=== PATIENT | male | born 1950 | race Caucasian/White ===

== ENCOUNTER 2019-01-26 11:36 | Emergency (ER) | payer MEDICARE ==
[2019-01-26 13:14] VITALS: BP 155/89
--- NOTE | 2019-01-26 17:04 | ED ---
Laceration/Wound HPI - HPI Summary HPI Summary: Patient is an otherwise healthy 68-year-old male presenting to the ED with a small laceration just below the eye. He states he ran into a board approximately 1 hour prior to arrival. He denies any visual changes, headache or other symptoms. He is concerned over the laceration, bleeding is well- controlled on arrival. He denies any other symptoms. - History of Current Complaint Stated Complaint: RT EYE INJ PER PT Time Seen by Provider: 01/26/19 11:58 Hx Obtained From: Patient Mechanism of Injury: Sharp/Blunt Trauma Onset/Duration: Sudden Onset Aggravating: Movement Alleviating: Compression Timing: Constant Onset Severity: Mild Current Severity: Mild Pain Intensity: 0 Pain Scale Used: 0-10 Numeric Associated Signs & Symptoms: Negative - Allergy/Home Medications Allergies/Adverse Reactions: Allergies Allergy/AdvReac Type Severity Reaction Status Date / Time No Known Allergies Allergy Verified 10/07/14 13:18 PMH/Surg Hx/FS Hx/Imm Hx Previously Healthy: Yes - Surgical History Surgery Procedure, Year, and Place: right arm age 14; appenedectomy; wisdom teeth - Immunization History Date of Tetanus Vaccine: unknown Hx Pertussis Vaccination: No Immunizations Up to Date: Yes Infectious Disease History: No Infectious Disease History: Denies: Hx Clostridium Difficile, Hx Hepatitis, Hx Human Immunodeficiency Virus (HIV), Hx of Known/Suspected MRSA, Hx Shingles, Hx Tuberculosis, Hx Known/ Suspected VRE, Hx Known/Suspected VRSA, History Other Infectious Disease, Traveled Outside the [place] in Last 30 Days - Social History Occupation: Employed Full-time Lives: With Family Alcohol Use: None Alcohol Amount: dry 25 years Hx Substance Use: No Substance Use Type: Reports: None Smoking Status (MU): Never Smoked Tobacco Have You Smoked in the Last Year: No Review of Systems Constitutional: Negative Negative: Fever, Chills, Fatigue, Skin Diaphoresis Negative: Palpitations, Chest Pain Negative: Shortness Of Breath, Cough Genitourinary: Negative Positive: no symptoms reported, see HPI Negative: Arthralgia, Myalgia Positive: Other - .5cm laceration Neurological: Negative All Other Systems Reviewed And Are Negative: Yes Physical Exam Triage Information Reviewed: Yes Vital Signs On Initial Exam: Initial Vitals Temp Pulse Resp BP Pulse Ox 97.8 F 74 17 168/105 97 01/26/19 11:37 01/26/19 11:37 01/26/19 11:37 01/26/19 11:37 01/26/19 11:37 Vital Signs Reviewed: Yes Appearance: Positive: Well-Appearing, Well-Nourished Skin: Positive: Skin Color Reflects Adequate Perfusion, Other - .5cm laceration just below the R eye Eyes: Positive: EOMI, MAITE, Conjunctiva Clear Neck: Positive: Supple Respiratory/Lung Sounds: Positive: Clear to Auscultation, Breath Sounds Present Cardiovascular: Positive: Pulses are Symmetrical in both Upper and Lower Extremities Musculoskeletal: Positive: Strength/ROM Intact Neurological: Positive: Speech Normal Psychiatric: Positive: Affect/Mood Appropriate AVPU Assessment: Alert Diagnostics - Vital Signs Vital Signs Temp Pulse Resp BP Pulse Ox 01/26/19 13:13 98.0 F 63 18 155/89 96 01/26/19 13:11 155/89 01/26/19 13:00 66 97 01/26/19 12:33 68 173/108 97 01/26/19 12:05 75 98 01/26/19 12:03 74 161/108 96 01/26/19 11:37 97.8 F 74 17 168/105 97 - Laboratory Lab Statement: Any lab studies that have been ordered have been reviewed, and results considered in the medical decision making process. Laceration Repair Course/Dx - Course Course Of Treatment: On arrival into the ED, the patient is evaluated for a small laceration under the right thigh. The laceration is approximately 0.5 cm in length and is very superficial. Bleeding is well controlled on arrival. He is not having pain or tenderness to the right cheek or to the eye. Visual acuity is intact. Denies any blurry vision or double vision or headache. Cleanse wound thoroughly. Small amount of skin adhesive is applied with good effect. Patient denies any other concerns or symptoms. He is discharged with dx of laceration. - Clinical Impression Provider Diagnoses: Laceration Discharge - Sign-Out/Discharge Documenting (check all that apply): Patient Departure Patient Received Moderate/Deep Sedation with Procedure: No - Discharge Plan Condition: Stable Disposition: HOME Patient Education Materials: Skin Adhesive Care (ED) Referrals: Patricia Pappas MD [Primary Care Provider] - Additional Instructions: Don't wash face at this time - you may get the area wet tomorrow Tylenol 650mg three times daily as needed for pain Ice to the area - Billing Disposition and Condition Condition: STABLE Disposition: Home
== END 2019-01-26 13:13 | disposition home or self-care (01) ==
LOC: ED 11:36
DX: S01.411A Laceration without foreign body of right cheek and temporomandibular area, initial encounter (principal); W22.8XXA Striking against or struck by other objects, initial encounter; Y92.9 Unspecified place or not applicable
CPT/HCPCS: 99282

== ENCOUNTER 2019-04-28 13:54 | Emergency (ER) | payer MEDICARE ==
[2019-04-28 14:35] VITALS: BP 156/95
--- NOTE | 2019-04-28 15:53 | UC ---
Ear Complaint HPI - HPI Summary HPI Summary: The patient is a 68-year-old male that has had chronic left ear pain for at least 2 years. He states his been getting progressively worse. He states that typically after eating he gets sharp shooting pains that go from his left tragus forward to his left maxillary sinus. He has had no recent sinus congestion or postnasal drip. He denies any cough. He denies any ear pain with chewing. He denies any ringing or roaring in his ears. He denies any discharge from his ears. He has had no fever or chills. He denies any chest pain or shortness of breath. - History of Current Complaint Chief Complaint: UCGeneralIllness Stated Complaint: SINUS PAIN, AND RESTLESS LEGS Time Seen by Provider: 04/28/19 15:40 Hx Obtained From: Patient Onset/Duration: Gradual Onset, Worse Since - x weeks, Other - yrs Severity Initially: Mild Severity Currently: Severe Pain Intensity: 8 Pain Scale Used: 0-10 Numeric Aggravating Factors: Other - eating seems to trigger it Alleviating Factors: Nothing Associated Signs/Symptoms: Negative: Discharge, Hearing Loss, Foreign Body Sensation, Trauma to Ear, Swelling @, URI Symptoms Ear Image: 1 - pain here - Allergies/Home Medications Allergies/Adverse Reactions: Allergies Allergy/AdvReac Type Severity Reaction Status Date / Time No Known Allergies Allergy Verified 04/28/19 14:35 Home Medications: Home Medications Lisinopril [Lisinopril 2.5 MG-] 2.5 mg PO DAILY 04/28/19 [History Confirmed ] PMH/Surg Hx/FS Hx/Imm Hx Previously Healthy: Yes Endocrine History: Dyslipidemia Cardiovascular History: Hypertension - Surgical History Surgical History: Yes Surgery Procedure, Year, and Place: right arm age 14; appenedectomy; wisdom teeth - Family History Known Family History: Positive: Hypertension - Social History Alcohol Use: None Alcohol Amount: dry 25 years Substance Use Type: None Smoking Status (MU): Never Smoked Tobacco Have You Smoked in the Last Year: No Review of Systems All Other Systems Reviewed And Are Negative: Yes Constitutional: Positive: Negative Skin: Positive: Negative Eyes: Positive: Negative ENT: Positive: Ear Ache Respiratory: Positive: Negative Cardiovascular: Positive: Negative Gastrointestinal: Positive: Negative Genitourinary: Positive: Negative Motor: Positive: Negative Neurovascular: Positive: Negative Musculoskeletal: Positive: Negative Neurological: Positive: Negative Psychological: Positive: Negative Physical Exam Triage Information Reviewed: Yes Appearance: Well-Appearing, No Pain Distress, Well-Nourished Vital Signs: Initial Vital Signs Temp 98.7 F 04/28/19 14:32 Pulse 89 04/28/19 14:32 Resp 18 04/28/19 14:32 BP 156/95 04/28/19 14:32 Pulse Ox 98 04/28/19 14:32 Vital Signs Reviewed: Yes Eyes: Positive: Conjunctiva Clear ENT: Positive: Hearing grossly normal, Other - Ear canals abnormal, difficult to visualize TMs. Negative: Nasal congestion, Nasal drainage, Tonsillar exudate , Trismus, Muffled voice, Hoarse voice Neck: Positive: Supple, Nontender, No Lymphadenopathy Respiratory: Positive: Lungs clear, Normal breath sounds, No respiratory distress Cardiovascular: Positive: RRR, No Murmur Musculoskeletal: Positive: ROM Intact, No Edema Neurological: Positive: Alert Psychological Exam: Normal Images Head: 1 - radiation of pain Ear Complaint Course/Dx - Differential Dx/Diagnosis Provider Diagnosis: Chronic left ear pain Discharge ED - Sign-Out/Discharge Documenting (check all that apply): Patient Departure All imaging exams completed and their final reports reviewed: No Studies - Discharge Plan Condition: Stable Disposition: HOME Prescriptions: Naproxen [Naproxen 500 mg tab] 500 mg PO BID PRN #20 tablet PRN Reason: Pain Patient Education Materials: Earache (ED) Referrals: Breezy Anderson MD [Medical Doctor] - 1 Week Additional Instructions: I do not know what is causing your chronic left ear pain Both ear canals look abnormal and I can visualize your ear drums adequately I suggest you see an record retrieval specialist - Billing Disposition and Condition Condition: STABLE Disposition: Home
== END 2019-04-28 15:55 | disposition home or self-care (01) ==
LOC: UCEAST 13:54
DX: H92.02 Otalgia, left ear (principal); G89.29 Other chronic pain; I10 Essential (primary) hypertension; Z79.899 Other long term (current) drug therapy
CPT/HCPCS: 99212; G0463

== ENCOUNTER 2019-10-28 14:01 | Emergency (ER) | payer MEDICARE ==
[2019-10-28 14:20] VITALS: BP 179/99
--- NOTE | 2019-10-28 14:58 | UC ---
Psychiatric Complaint HPI - HPI Summary HPI Summary: The patient is a 69-year-old male with a lifelong history of anxiety. He has required medication for his anxiety for most of his life. He has had admissions for anxiety in the past. He has had psychotic episodes in the past. He has had electroconvulsive therapy in the past. He states today he has been on Prozac and Ativan for well over a year. He states that during the recent Covid 19 pandemic his anxiety has worsened. He has been taking his Ativan 3 times a day. He states that normally he hasn't get by on just 1 or 2 a day. This has been compounded by the fact that his thinks he is having an affair. He states that he found that Klonopin controlled his anxiety better then lorazepam. He has requested that I give him a trial prescription of Klonopin. He has had no suicidal or homicidal ideation. He has had some sleep difficulty. He states that his appetite has decreased of late. He denies any chest pain or shortness of breath. - History Of Current Complaint Chief Complaint: [facility]Psych Stated Complaint: ANXIOUS Time Seen by Provider: 10/28/19 14:12 Hx Obtained From: Patient Onset/Duration: Worse Since - x 4 weeks Timing: Constant Severity Initially: Mild Severity Currently: Severe Character: Anxious Aggravating Factor(s): Recent Stress Alleviating Factor(s): Medication, Counseling Associated Signs And Symptoms: Sleep Disturbance, Appetite Change, Social Isolation - due to COVID 19 - Allergies/Home Medications Allergies/Adverse Reactions: Allergies Allergy/AdvReac Type Severity Reaction Status Date / Time No Known Allergies Allergy Verified 10/28/19 14:20 Home Medications: Home Medications FLUoxetine CAP* [Prozac CAP*] 40 mg PO DAILY 11/25/12 [History Confirmed ] LORazepam TAB(*) [Ativan TAB(*)] 1 mg PO DAILY PRN 11/25/12 [History Confirmed 10/28/19] Simvastatin [Zocor] 10 mg PO DAILY 11/25/12 [History Confirmed 10/28/19] Aspirin 325 mg PO DAILY 10/07/14 [History Confirmed 10/28/19] Naproxen [Naproxen 500 mg tab] 500 mg PO BID PRN #20 tablet 04/28/19 [Rx Confirmed 10/28/19] lisinopriL [Lisinopril 2.5 MG-] 2.5 mg PO DAILY 04/28/19 [History Confirmed ] clonazePAM TAB(*) [KlonoPIN TAB(*)] 0.5 mg PO TID PRN #21 tab MDD 3 10/28/19 [Rx ] PMH/Surg Hx/FS Hx/Imm Hx Previously Healthy: Yes Psychological History: Anxiety, Depression - Surgical History Surgical History: Yes Surgery Procedure, Year, and Place: right arm age 14; appenedectomy; wisdom teeth - Family History Known Family History: Positive: Hypertension - Social History Alcohol Use: None Alcohol Amount: dry 25 years Substance Use Type: None Smoking Status (MU): Never Smoked Tobacco Have You Smoked in the Last Year: No Review of Systems All Other Systems Reviewed And Are Negative: Yes Constitutional: Positive: Negative Skin: Positive: Negative Eyes: Positive: Negative ENT: Positive: Negative Respiratory: Positive: Negative Cardiovascular: Positive: Negative Gastrointestinal: Positive: Negative Genitourinary: Positive: Negative Motor: Positive: Negative Neurovascular: Positive: Negative Musculoskeletal: Positive: Negative Neurological/Mental Status: Positive: Negative Psychological: Positive: Anxious Physical Exam Triage Information Reviewed: Yes Appearance: Well-Appearing, No Pain Distress, Well-Nourished Vital Signs: Initial Vital Signs Temp 97.8 F 10/28/19 14:17 Pulse 71 10/28/19 14:17 Resp 18 10/28/19 14:17 BP 179/99 10/28/19 14:17 Pulse Ox 98 10/28/19 14:17 Vital Signs Reviewed: Yes Eyes: Positive: Conjunctiva Clear ENT: Positive: Hearing grossly normal. Negative: Nasal drainage, TMs normal, Tonsillar swelling, Tonsillar exudate, Muffled voice, Hoarse voice Dental Exam: Normal Neck: Positive: Supple Respiratory: Positive: Lungs clear, Normal breath sounds, No respiratory distress, No accessory muscle use Cardiovascular: Positive: RRR, No Murmur Abdominal Exam: Normal Bowel Sounds: Positive: Present Musculoskeletal: Positive: ROM Intact, No Edema Neurological: Positive: Alert Psychological Exam: Other - normal mood and affect Skin Exam: Normal Psych Complaint Course/Dx - Course Course Of Treatment: [facility] #[id number] - Differential Dx/Diagnosis Provider Diagnosis: Anxiety as acute reaction to exceptional stress Discharge ED - Sign-Out/Discharge Documenting (check all that apply): Patient Departure All imaging exams completed and their final reports reviewed: No Studies - Discharge Plan Condition: Stable Disposition: HOME Prescriptions: clonazePAM TAB(*) [KlonoPIN TAB(*)] 0.5 mg PO TID PRN #21 tab MDD 3 PRN Reason: Anxiety Patient Education Materials: Anxiety (ED) Referrals: Patricia Pappas MD [Primary Care Provider] - If Needed Additional Instructions: stop your lorazepam while taking klonipin contact your psychiatrist re follow up to ER for new or worsening symptoms - Billing Disposition and Condition Condition: STABLE Disposition: Home
== END 2019-10-28 15:08 | disposition home or self-care (01) ==
LOC: UCEAST 14:01
DX: F41.1 Generalized anxiety disorder (principal); F43.0 Acute stress reaction; F32.9 Major depressive disorder, single episode, unspecified; Z79.899 Other long term (current) drug therapy
CPT/HCPCS: 99212; G0463

== ENCOUNTER 2022-04-12 02:27 | Inpatient (IN) ==
[2022-04-12 06:27] LABS: ABS Lymphocytes 0.5 10^3/ul (1.0-4.8); ABS Monocytes 0.8 10^3/ul (0-0.8); ABS Neutrophils 7.3 10^3/ul (1.5-7.7); Eosinophil % 0.1 %; Hematocrit 35 % (42-52); Hemoglobin 12.1 g/dL (14.0-18.0); Lymphocyte % 5.6 %; Mean Corpuscular HGB Conc 35 g/dL (31-36); Mean Corpuscular Hemoglobin 30 pg (27-31); Mean Corpuscular Volume 85 fL (80-94); Mean Platelet Volume 7.8 fL (7.4-10.4); Nucleated Red Blood Cells % 0.1; Platelet Count 233 10^3/uL (150-450); Red Blood Count 4.09 10^6 /uL (4.18-5.48); Red Cell Distribution Width 14 % (10-15); White Blood Count 8.6 10^3/uL (3.5-10.8)
[2022-04-12 07:13] LABS: Albumin 3.3 g/dL (3.2-5.2); Albumin/Globulin Ratio 1.4 (1-3); Calcium 7.8 mg/dL (8.6-10.3); Globulin 2.3 g/dL (2-4); Potassium 3.7 mmol/L (3.5-5.0); Total Bilirubin 0.3 mg/dL (0.2-1.0); Total Protein 5.6 g/dL (6.4-8.9); eGFR CKD-EPI 12.8 (>60)
[2022-04-12] MEDS: Lactated Ringers 1000 ml BAG 2,000 ML IV ONE ×2 (07:41→08:29)
[2022-04-12] MEDS ORDERED: Lidocaine 2% JELLY 6 ML Topical TOPICAL ONE (09:00)
[2022-04-12 09:36] LABS: Urine Appearance Clear; Urine Bilirubin Negative (Negative); Urine Blood 3+ (Negative); Urine Color Yellow; Urine Glucose Negative (Negative); Urine Ketones Trace (Negative); Urine Nitrite Negative (Negative); Urine Protein Negative (Negative); Urine Urobilinogen Negative (Negative)
[2022-04-12 09:37] LABS: Venous Bicarbonate HCO3 18.9 mmol/L (24-28)
[2022-04-12 09:41] LABS: Urine Bacteria 1+ (Absent); Urine Red Blood Cell 3+(>10/hpf) (Absent); Urine White Blood Cell Trace(0-5/hpf) (Absent)
[2022-04-12 10:09] LABS: Albumin/Globulin Ratio 1.4 (1-3); Calcium 7.5 mg/dL (8.6-10.3); Direct Bilirubin 0.1 mg/dL (0.03-0.18); Globulin 2.1 g/dL (2-4); Indirect Bilirubin 0.2 mg/dL (0.3-1.0); Magnesium 2.2 mg/dL (1.9-2.7); Potassium 3.5 mmol/L (3.5-5.0); Total Bilirubin 0.3 mg/dL (0.2-1.0); Total Protein 5.1 g/dL (6.4-8.9); eGFR CKD-EPI 13.4 (>60)
[2022-04-12 10:53] LABS: High Sensitivity Troponin 1 Hr 40 pg/mL (<20)
[2022-04-12 12:44] LABS: TSH Ultra Thyroid Stim Horm 1.04 mcIU/mL (0.34-5.60)
[2022-04-12 12:55] LABS: Osmolality Serum 269 mOsm/kg (275-295)
[2022-04-12] MEDS ORDERED: Lactated Ringers 1000 ml BAG 1,000 ML IV SCH (13:04)
[2022-04-12 13:44] LABS: Urine Chloride Concentration < 22 mmol/L; Urine Potassium Concentration 35.7 mmol/L; Urine Sodium Concentration < 18 mmol/L
[2022-04-12 13:45] LABS: Urine Osmo 297 mOsm/kg (150-1150)
[2022-04-12] MEDS: Heparin 5000 UNITS/ML 1 mL VIAL SUBCUT SCH ×2 (15:06→20:20)
[2022-04-12] MEDS ORDERED: Potassium Chlor 20 meq TAB.ER PO ONE (15:10)
[2022-04-12 15:14] LABS: Calcium 7.3 mg/dL (8.6-10.3); Magnesium 2.1 mg/dL (1.9-2.7); Potassium 3.1 mmol/L (3.5-5.0)
[2022-04-12 15:19] LABS: eGFR CKD-EPI 16.4 (>60)
[2022-04-12] MEDS ORDERED: KCL 10 MEQ/50 ML IVPREMIX 10 MEQ/50 ML BAG ONE (15:30)
[2022-04-12] MEDS: KCL 10 MEQ/50 ML IVPREMIX 10 MEQ/50 ML BAG IV SCH ×2 (15:32→16:57)
[2022-04-12] MEDS ORDERED: LORazepam 2 mg VIAL 1 ml ONE (16:02)
[2022-04-12] MEDS ORDERED: Lorazepam PYXIS KEY ONE (16:02)
[2022-04-12] MEDS ORDERED: Lorazepam PYXIS KEY PRN (16:07)
[2022-04-12] MEDS ORDERED: LORazepam 2 mg VIAL 1 ml IV PUSH ONE (16:08)
[2022-04-12] MEDS ORDERED: LORAZEPAM 2 MG PO PRN (17:14)
[2022-04-12 18:41] LABS: Calcium 7.4 mg/dL (8.6-10.3); eGFR CKD-EPI 19.1 (>60)
[2022-04-12 19:50] LABS: Urine Appearance Cloudy; Urine Bilirubin Negative (Negative); Urine Blood 2+ (Negative); Urine Color Yellow; Urine Glucose Negative (Negative); Urine Ketones Trace (Negative); Urine Nitrite Negative (Negative); Urine Protein 3+(>=500 mg/dL) (Negative); Urine Specific Gravity 1.009 (1.002-1.030); Urine Urobilinogen Negative (Negative)
[2022-04-12 19:54] LABS: Urine Bacteria 1+ (Absent); Urine Red Blood Cell 3+(>10/hpf) (Absent); Urine Squamous Epithelial Cell Present (Absent); Urine White Blood Cell 1+(6-10/hpf) (Absent)
[2022-04-12 20:24] LABS: Calcium 7.5 mg/dL (8.6-10.3); eGFR CKD-EPI 21.5 (>60)
[2022-04-12 21:30] LABS: Phosphorus 6.5 mg/dL (2.5-5.0)
[2022-04-12] MEDS: KCL 20 MEQ/100 ML IVPREMIX 20 MEQ/100 ML BAG IV SCH (23:51)
[2022-04-12] MEDS: Saline FLUSH-CENTRAL 10 ML SYRINGE CENT\\PICC SCH (23:51)
[2022-04-13 01:42] LABS: Anion Gap 12 mmol/L (2-11); Blood Urea Nitrogen 59 mg/dL (6-24); CO2 Carbon Dioxide 21 mmol/L (22-32); Calcium 7.3 mg/dL (8.6-10.3); Chloride 97 mmol/L (101-111); Glucose 89 mg/dL (70-100); Potassium 3.3 mmol/L (3.5-5.0); Sodium 130 mmol/L (135-145); eGFR CKD-EPI 27.4 (>60)
[2022-04-13] MEDS: KCL 20 MEQ/100 ML IVPREMIX 20 MEQ/100 ML BAG IV SCH (02:17)
[2022-04-13] MEDS ORDERED: Lactated Ringers 1000 ml BAG 1,000 ML IV SCH (02:22)
[2022-04-13 02:50] LABS: Acetaminophen < 15 mcg/mL
[2022-04-13] MEDS ORDERED: NS 0.45% 1000 ml BAG 1,000 ML IV SCH (03:00)
[2022-04-13 04:35] LABS: Calcium 7.3 mg/dL (8.6-10.3); Potassium 3.5 mmol/L (3.5-5.0); eGFR CKD-EPI 31.1 (>60)
[2022-04-13] MEDS ORDERED: D5W 500 ml BAG 500 ML IV ONE (04:41)
[2022-04-13] MEDS ORDERED: Lorazepam PYXIS KEY PRN (06:05)
[2022-04-13] MEDS ORDERED: LORazepam 2 mg VIAL 1 ml IV PUSH ONE (06:05)
[2022-04-13 06:09] LABS: Hematocrit 34 % (42-52); Hemoglobin 11.9 g/dL (14.0-18.0); Mean Corpuscular HGB Conc 35 g/dL (31-36); Mean Corpuscular Hemoglobin 30 pg (27-31); Mean Corpuscular Volume 85 fL (80-94); Mean Platelet Volume 7.8 fL (7.4-10.4); Platelet Count 220 10^3/uL (150-450); Red Cell Distribution Width 15 % (10-15); White Blood Count 5.7 10^3/uL (3.5-10.8)
[2022-04-13] MEDS: Heparin 5000 UNITS/ML 1 mL VIAL SUBCUT SCH ×3 (06:17→20:54)
[2022-04-13 07:07] LABS: Calcium 7.3 mg/dL (8.6-10.3); Potassium 3.4 mmol/L (3.5-5.0); eGFR CKD-EPI 34.6 (>60)
[2022-04-13] MEDS ORDERED: Desmopressin Acetate 4 MCG/ML 1 ML SDV SUBCUT ONE ×2 (07:15→20:12)
[2022-04-13] MEDS: Saline FLUSH-CENTRAL 10 ML SYRINGE CENT\\PICC SCH ×2 (08:17→22:14)
[2022-04-13] MEDS: NS 0.45% 1000 ml BAG 1,000 ML IV SCH ×3 (08:19→20:04)
[2022-04-13 12:40] LABS: Calcium 7.7 mg/dL (8.6-10.3); Potassium 3.4 mmol/L (3.5-5.0); eGFR CKD-EPI 47.9 (>60)
[2022-04-13 16:45] LABS: Blood Urea Nitrogen 34 mg/dL (6-24); CO2 Carbon Dioxide 27 mmol/L (22-32); Calcium 7.3 mg/dL (8.6-10.3); Chloride 96 mmol/L (101-111); Glucose 117 mg/dL (70-100); Sodium 135 mmol/L (135-145); eGFR CKD-EPI 60.2 (>60)
[2022-04-13 17:22] LABS: Anion Gap 12 mmol/L (2-11)
[2022-04-13 20:45] LABS: Potassium 3.7 mmol/L (3.5-5.0); eGFR CKD-EPI 66.4 (>60)
[2022-04-13 21:07] LABS: Calcium 7.2 mg/dL (8.6-10.3)
[2022-04-13] MEDS ORDERED: Potassium Chlor 20 meq TAB.ER PO ONE (21:16)
[2022-04-14 00:52] LABS: Potassium 3.7 mmol/L (3.5-5.0)
[2022-04-14 01:14] LABS: Calcium 7.1 mg/dL (8.6-10.3)
[2022-04-14] MEDS ORDERED: Desmopressin Acetate 4 MCG/ML 1 ML SDV SUBCUT SCH (03:00)
[2022-04-14] MEDS: NS 0.45% 1000 ml BAG 1,000 ML IV SCH (05:35)
[2022-04-14] MEDS: Heparin 5000 UNITS/ML 1 mL VIAL SUBCUT SCH ×3 (06:00→20:36)
[2022-04-14 06:08] LABS: ABS Eosinophils 0.1 10^3/ul (0-0.6); ABS Lymphocytes 1.1 10^3/ul (1.0-4.8); ABS Monocytes 0.6 10^3/ul (0-0.8); Eosinophil % 2.5 %; Hematocrit 33 % (42-52); Hemoglobin 11.8 g/dL (14.0-18.0); Lymphocyte % 23.1 %; Mean Corpuscular HGB Conc 36 g/dL (31-36); Mean Corpuscular Hemoglobin 31 pg (27-31); Mean Corpuscular Volume 86 fL (80-94); Mean Platelet Volume 7.7 fL (7.4-10.4); Nucleated Red Blood Cells % 0.1; Platelet Count 218 10^3/uL (150-450); Red Blood Count 3.82 10^6 /uL (4.18-5.48); Red Cell Distribution Width 14 % (10-15); White Blood Count 4.8 10^3/uL (3.5-10.8)
[2022-04-14 06:54] LABS: Calcium 7.1 mg/dL (8.6-10.3); Magnesium 1.7 mg/dL (1.9-2.7); Phosphorus 1.5 mg/dL (2.5-5.0); Potassium 3.5 mmol/L (3.5-5.0); eGFR CKD-EPI 94.9 (>60)
[2022-04-14] MEDS ORDERED: Magnesium Sulfate IV 3 GM in NS 0.9% 100 ml BAG 100 ML IVPB ONE (07:26)
[2022-04-14] MEDS: Saline FLUSH-CENTRAL 10 ML SYRINGE CENT\\PICC SCH ×2 (08:08→20:36)
[2022-04-14] MEDS: Lactated Ringers 1000 ml BAG 1,000 ML IV SCH ×2 (09:13→23:00)
[2022-04-14 12:42] LABS: Calcium 7.2 mg/dL (8.6-10.3); Potassium 3.5 mmol/L (3.5-5.0); eGFR CKD-EPI 98.7 (>60)
[2022-04-14 19:48] LABS: Calcium 6.8 mg/dL (8.6-10.3); Potassium 3.7 mmol/L (3.5-5.0); eGFR CKD-EPI 97.5 (>60)
[2022-04-15] MEDS: Heparin 5000 UNITS/ML 1 mL VIAL SUBCUT SCH ×3 (05:56→20:25)
[2022-04-15 06:47] LABS: Calcium 7.4 mg/dL (8.6-10.3); Magnesium 1.5 mg/dL (1.9-2.7); Potassium 3.7 mmol/L (3.5-5.0); eGFR CKD-EPI 98.7 (>60)
[2022-04-15] MEDS ORDERED: Magnesium Sulfate 2 gm BAG 2 GM/50 ML BAG IVPB ONE ×2 (07:00→10:02)
[2022-04-15] MEDS ORDERED: Potassium Chlor 20 meq TAB.ER PO ONE (07:01)
[2022-04-15] MEDS ORDERED: Senna TAB 8.6 mg TAB PO PRN (07:08)
[2022-04-15] MEDS: Saline FLUSH-CENTRAL 10 ML SYRINGE CENT\\PICC SCH ×2 (08:17→20:33)
[2022-04-15] MEDS ORDERED: Dextrose 50% Syringe 50 ml 25 GM/50 ML SYRINGE IV PUSH PRN (10:21)
[2022-04-15] MEDS ORDERED: Lactated Ringers 1000 ml BAG 500 ML IV SCH (11:00)
[2022-04-15] MEDS ORDERED: Lactated Ringers 500 ml BAG 500 ML IV ONE (13:21)
[2022-04-15] MEDS: Lactated Ringers 1000 ml BAG 1,000 ML IV SCH ×2 (14:11→18:27)
[2022-04-15 14:36] LABS: Calcium 7.8 mg/dL (8.6-10.3); Potassium 4.2 mmol/L (3.5-5.0); eGFR CKD-EPI 95.9 (>60)
[2022-04-15] MEDS ORDERED: Desmopressin Acetate 4 MCG/ML 1 ML SDV SUBCUT ONE ×2 (16:08)
[2022-04-15 16:11] LABS: Magnesium 2.3 mg/dL (1.9-2.7); Phosphorus 1.3 mg/dL (2.5-5.0)
[2022-04-15] MEDS ORDERED: Potassium Phosphate IV 15 MMOLE in NS 0.9% 250 ml 250 ML IVPB ONE (17:00)
[2022-04-16] MEDS: Heparin 5000 UNITS/ML 1 mL VIAL SUBCUT SCH ×3 (05:25→22:38)
[2022-04-16] MEDS: Lactated Ringers 1000 ml BAG 1,000 ML IV SCH ×2 (06:19→22:38)
[2022-04-16 06:49] LABS: ABS Eosinophils 0.3 10^3/ul (0-0.6); ABS Lymphocytes 1.2 10^3/ul (1.0-4.8); ABS Monocytes 0.7 10^3/ul (0-0.8); ABS Neutrophils 3.9 10^3/ul (1.5-7.7); Eosinophil % 5.5 %; Hematocrit 32 % (42-52); Hemoglobin 11.1 g/dL (14.0-18.0); Lymphocyte % 19.6 %; Mean Corpuscular HGB Conc 34 g/dL (31-36); Mean Corpuscular Hemoglobin 30 pg (27-31); Mean Corpuscular Volume 88 fL (80-94); Mean Platelet Volume 7.6 fL (7.4-10.4); Platelet Count 262 10^3/uL (150-450); Red Cell Distribution Width 14 % (10-15); White Blood Count 6.2 10^3/uL (3.5-10.8)
[2022-04-16 06:56] LABS: Calcium 7.1 mg/dL (8.6-10.3); Magnesium 1.6 mg/dL (1.9-2.7); Phosphorus 1.8 mg/dL (2.5-5.0); Potassium 3.9 mmol/L (3.5-5.0); eGFR CKD-EPI 94.9 (>60)
[2022-04-16] MEDS ORDERED: Magnesium Sulfate 2 gm BAG 2 GM/50 ML BAG IVPB ONE (08:07)
[2022-04-16] MEDS: Saline FLUSH-CENTRAL 10 ML SYRINGE CENT\\PICC SCH ×2 (10:09→22:45)
[2022-04-17] MEDS: Heparin 5000 UNITS/ML 1 mL VIAL SUBCUT SCH ×3 (05:25→20:30)
[2022-04-17 06:50] LABS: Calcium 7.4 mg/dL (8.6-10.3); Magnesium 1.4 mg/dL (1.9-2.7); Potassium 3.8 mmol/L (3.5-5.0); eGFR CKD-EPI 99.1 (>60)
[2022-04-17] MEDS ORDERED: Magnesium Sulfate 2 gm BAG 2 GM/50 ML BAG IVPB ONE (06:52)
[2022-04-17] MEDS: Saline FLUSH-CENTRAL 10 ML SYRINGE CENT\\PICC SCH ×2 (09:17→20:33)
[2022-04-17 22:14] LABS: Calcium 7.5 mg/dL (8.6-10.3); Potassium 3.8 mmol/L (3.5-5.0)
[2022-04-18 01:32] LABS: Urine Osmo 260 mOsm/kg (150-1150)
[2022-04-18] MEDS: Heparin 5000 UNITS/ML 1 mL VIAL SUBCUT SCH ×3 (05:46→20:30)
[2022-04-18 06:10] LABS: ABS Eosinophils 0.4 10^3/ul (0-0.6); ABS Lymphocytes 1.2 10^3/ul (1.0-4.8); ABS Monocytes 0.6 10^3/ul (0-0.8); ABS Neutrophils 4.1 10^3/ul (1.5-7.7); Eosinophil % 5.7 %; Hematocrit 33 % (42-52); Hemoglobin 11.5 g/dL (14.0-18.0); Lymphocyte % 19.2 %; Mean Corpuscular HGB Conc 35 g/dL (31-36); Mean Corpuscular Hemoglobin 30 pg (27-31); Mean Corpuscular Volume 88 fL (80-94); Mean Platelet Volume 7.4 fL (7.4-10.4); Platelet Count 267 10^3/uL (150-450); Red Cell Distribution Width 14 % (10-15); White Blood Count 6.3 10^3/uL (3.5-10.8)
[2022-04-18 06:32] LABS: Calcium 7.6 mg/dL (8.6-10.3); Magnesium 1.6 mg/dL (1.9-2.7)
[2022-04-18 06:38] LABS: eGFR CKD-EPI 97.5 (>60)
[2022-04-18] MEDS ORDERED: Magnesium Sulfate 2 gm BAG 2 GM/50 ML BAG IVPB ONE (06:44)
[2022-04-18 10:05] LABS: Osmolality Serum 280 mOsm/kg (275-295)
[2022-04-18] MEDS: Saline FLUSH-CENTRAL 10 ML SYRINGE CENT\\PICC SCH ×2 (11:07→20:33)
[2022-04-18 14:57] LABS: Hepatitis C Antibody Negative (Negative)
[2022-04-18 19:41] LABS: HIV 4th Generation Nonreactive (Nonreactive)
[2022-04-19 05:51] LABS: ABS Eosinophils 0.2 10^3/ul (0-0.6); ABS Lymphocytes 1.1 10^3/ul (1.0-4.8); ABS Monocytes 0.5 10^3/ul (0-0.8); ABS Neutrophils 3.4 10^3/ul (1.5-7.7); Eosinophil % 4.4 %; Hematocrit 34 % (42-52); Hemoglobin 11.3 g/dL (14.0-18.0); Lymphocyte % 20.7 %; Mean Corpuscular HGB Conc 34 g/dL (31-36); Mean Corpuscular Hemoglobin 30 pg (27-31); Mean Corpuscular Volume 89 fL (80-94); Mean Platelet Volume 6.8 fL (7.4-10.4); Nucleated Red Blood Cells % 0.1; Platelet Count 254 10^3/uL (150-450); Red Blood Count 3.82 10^6 /uL (4.18-5.48); Red Cell Distribution Width 14 % (10-15); White Blood Count 5.3 10^3/uL (3.5-10.8)
[2022-04-19] MEDS: Heparin 5000 UNITS/ML 1 mL VIAL SUBCUT SCH (05:56)
[2022-04-19 06:14] LABS: Calcium 7.6 mg/dL (8.6-10.3); Potassium 4.1 mmol/L (3.5-5.0); eGFR CKD-EPI 98.3 (>60)
[2022-04-19 07:04] LABS: Osmolality Serum 293 mOsm/kg (275-295)
[2022-04-19] MEDS: Saline FLUSH-CENTRAL 10 ML SYRINGE CENT\\PICC SCH (08:17)
[2022-04-19] MEDS ORDERED: Polyethylene Glycol 3350 17 GM PACKET PO PRN (08:33)
[2022-04-19 10:03] LABS: Urine Osmo 343 mOsm/kg (150-1150)
[2022-04-19 11:44] VITALS: BP 147/85
[2022-04-19 17:32] LABS: Hepatitis B Surface Antigen Nonreactive (Nonreactive)
== END 2022-04-19 14:30 | disposition home or self-care (01) | DRG 682 ==
LOC: ED 02:27 → EDHOLD 10:44 → SUATTDRO 10:44 → ICU 14:40 → MED 04-15 18:21
PROVIDERS: ADMIT Internal Medicine Critical Care Medicine; ATTEND Internal Medicine

== ENCOUNTER 2023-05-27 09:12 | Inpatient (IN) ==
[2023-05-27] MEDS ORDERED: NS 0.9% 1000 ml BAG 1,000 ML IV ONE ×3 (09:36→11:21)
[2023-05-27 09:49] LABS: Hematocrit 37.8 % (38-53); Hemoglobin 13.2 g/dL (13.2-16.3); Mean Corpuscular Hemoglobin 29.7 pg (27-33); Mean Corpuscular Hgb Conc 34.9 g/dL (31-36); Mean Platelet Volume 7.6 fL (7.5-11.2); Platelet Count 331 10^3/uL (150-450); Red Blood Count 4.45 10^6/uL (4.06-5.63); Red Cell Distribution Width 14.5 % (12-17); White Blood Count 16.2 10^3/uL (3.6-10.2)
[2023-05-27 10:29] LABS: Albumin 3.6 g/dL (3.2-5.2); Albumin/Globulin Ratio 1.1 (1-3); Alkaline Phosphatase 55 U/L (35-149); Blood Urea Nitrogen 72 mg/dL (6-24); CO2 Carbon Dioxide 18 mmol/L (22-32); Calcium 8.8 mg/dL (8.6-10.3); Chloride 94 mmol/L (101-111); Creatinine, Serum 3.64 mg/dL (0.67-1.17); Globulin 3.3 g/dL (2-4); Glucose 143 mg/dL (70-100); Magnesium 2.3 mg/dL (1.9-2.7); Sodium 128 mmol/L (135-145); Total Bilirubin 0.9 mg/dL (0.2-1.0); Total Protein 6.9 g/dL (6.4-8.9); eGFR CKD-EPI 17.1 (>60)
[2023-05-27 10:31] LABS: ALT 20 U/L (7-52)
[2023-05-27 10:32] LABS: Urine Appearance Turbid; Urine Bilirubin Negative (Negative); Urine Blood 1+ (Negative); Urine Color Amber; Urine Glucose Negative (Negative); Urine Ketones Negative (Negative); Urine Nitrite Negative (Negative); Urine Protein 3+(>=500 mg/dL) (Negative); Urine Urobilinogen Negative (Negative)
[2023-05-27 10:44] LABS: Urine Bacteria 1+ (Absent); Urine Red Blood Cell 3+(>10/hpf) (Absent); Urine White Blood Cell 3+(>20/hpf) (Absent)
[2023-05-27 10:45] LABS: Anion Gap 16 mmol/L (2-16); Creatine Kinase 2255 U/L (10-223)
[2023-05-27 10:49] LABS: ABS Lymphocytes 0.6 10^3/uL (1.0-4.8); ABS Monocytes 1.4 10^3/uL (0.0-1.1); ABS Neutrophils 14.2 10^3/uL (1.5-7.6); ABS Nucleated RBC 0.01 10^3/ul; Lymphocyte % 3.5 %
[2023-05-27] MEDS ORDERED: Cefepime 2 GM in Dextrose 2 GM/50 ML BAG IV ONE (11:13)
[2023-05-27 11:50] LABS: Potassium Redraw 3.7 mmol/L (3.5-5.0)
[2023-05-27] MEDS ORDERED: Heparin 5000 UNITS/ML 1 mL VIAL SUBCUT SCH (14:00)
[2023-05-27 14:11] LABS: Urine Osmo 437 mOsm/kg (150-1150)
[2023-05-27] MEDS ORDERED: D5LR 20 MEQ KCL 1000 ml BAG 1,000 ML IV SCH (14:30)
[2023-05-27 14:45] LABS: Osmolality Serum 292 mOsm/kg (275-295)
[2023-05-27 14:55] LABS: Calcium 7.5 mg/dL (8.6-10.3); Creatinine, Serum 2.43 mg/dL (0.67-1.17); Potassium 3.3 mmol/L (3.5-5.0); eGFR CKD-EPI 27.7 (>60)
[2023-05-27] MEDS ORDERED: NS 0.45% KCl 20 Meq 1000 ml 1,000 ML IV SCH (15:00)
[2023-05-27] MEDS: Potassium Chloride LIQUID 20 MEQ/15 ML LIQUID PO SCH ×2 (17:00→22:00)
[2023-05-27 17:18] LABS: Hematocrit 34.6 % (38-53); Hemoglobin 11.9 g/dL (13.2-16.3); Mean Corpuscular Hemoglobin 29.6 pg (27-33); Mean Corpuscular Hgb Conc 34.3 g/dL (31-36); Mean Platelet Volume 7.5 fL (7.5-11.2); Platelet Count 244 10^3/uL (150-450); Red Blood Count 4.02 10^6/uL (4.06-5.63); Red Cell Distribution Width 14.5 % (12-17); White Blood Count 10.2 10^3/uL (3.6-10.2)
[2023-05-27 17:20] LABS: Creatinine, Serum 2.44 mg/dL (0.67-1.17); Potassium 3.6 mmol/L (3.5-5.0); eGFR CKD-EPI 27.6 (>60)
[2023-05-27] MEDS: cefTRIAXone 1 gm/50 mL D5W 1 GM/50 ML BAG IV SCH (22:17)
[2023-05-28 00:41] LABS: Calcium 7.8 mg/dL (8.6-10.3); Creatinine, Serum 1.59 mg/dL (0.67-1.17); Potassium 3.6 mmol/L (3.5-5.0); eGFR CKD-EPI 46.1 (>60)
[2023-05-28] MEDS ORDERED: NS 0.45% 1000 ml BAG 1,000 ML IV SCH ×2 (01:00→04:40)
[2023-05-28 06:25] LABS: ABS Eosinophils 0.2 10^3/uL (0.0-0.5); ABS Lymphocytes 0.7 10^3/uL (1.0-4.8); ABS Monocytes 0.4 10^3/uL (0.0-1.1); ABS Neutrophils 7.2 10^3/uL (1.5-7.6); Eosinophil % 2.6 %; Hematocrit 29.5 % (38-53); Hemoglobin 10.4 g/dL (13.2-16.3); Lymphocyte % 7.7 %; Mean Corpuscular Hgb Conc 35.3 g/dL (31-36); Mean Corpuscular Volume 84.8 fL (80-97); Mean Platelet Volume 7.5 fL (7.5-11.2); Platelet Count 201 10^3/uL (150-450); Red Blood Count 3.48 10^6/uL (4.06-5.63); Red Cell Distribution Width 14.2 % (12-17); White Blood Count 8.6 10^3/uL (3.6-10.2)
[2023-05-28 06:44] LABS: Albumin 2.7 g/dL (3.2-5.2); Calcium 7.5 mg/dL (8.6-10.3); Creatinine, Serum 1.35 mg/dL (0.67-1.17); Globulin 2.6 g/dL (2-4); Magnesium 2.1 mg/dL (1.9-2.7); Potassium 3.2 mmol/L (3.5-5.0); Total Bilirubin 0.6 mg/dL (0.2-1.0); Total Protein 5.3 g/dL (6.4-8.9); eGFR CKD-EPI 56.1 (>60)
[2023-05-28] MEDS: Polyethylene Glycol 3350 17 GM PACKET PO SCH (10:36)
[2023-05-28 12:30] LABS: Calcium 7.6 mg/dL (8.6-10.3); Creatinine, Serum 1.17 mg/dL (0.67-1.17); Potassium 3.2 mmol/L (3.5-5.0); eGFR CKD-EPI 66.6 (>60)
[2023-05-28] MEDS ORDERED: Enoxaparin 40 MG/0.4 ML SYR SUBCUT SCH (18:00)
[2023-05-28 18:23] LABS: Calcium 7.8 mg/dL (8.6-10.3); Creatinine, Serum 1.21 mg/dL (0.67-1.17); Potassium 3.2 mmol/L (3.5-5.0)
[2023-05-28 19:55] LABS: Activated Partial Thrombo Time 23.3 seconds (26.0-38.0)
[2023-05-28 19:56] LABS: ABS Eosinophils 0.3 10^3/uL (0.0-0.5); ABS Lymphocytes 0.5 10^3/uL (1.0-4.8); ABS Monocytes 0.7 10^3/uL (0.0-1.1); ABS Neutrophils 8.1 10^3/uL (1.5-7.6); Hematocrit 30.9 % (38-53); Hemoglobin 10.8 g/dL (13.2-16.3); Lymphocyte % 5.6 %; Mean Corpuscular Hemoglobin 29.7 pg (27-33); Mean Corpuscular Hgb Conc 34.9 g/dL (31-36); Mean Platelet Volume 7.7 fL (7.5-11.2); Platelet Count 211 10^3/uL (150-450); Red Blood Count 3.64 10^6/uL (4.06-5.63); Red Cell Distribution Width 14.2 % (12-17); White Blood Count 9.7 10^3/uL (3.6-10.2)
[2023-05-28 20:02] LABS: Creatinine, Serum 1.11 mg/dL (0.67-1.17)
[2023-05-28] MEDS: Heparin 5000 UNITS/ML 1 mL VIAL SUBCUT SCH (20:46)
[2023-05-28 21:21] LABS: Urine Potassium Concentration 9.1 mmol/L
[2023-05-28 22:09] LABS: Calcium 7.4 mg/dL (8.6-10.3); Creatinine, Serum 1.1 mg/dL (0.67-1.17); Potassium 3.5 mmol/L (3.5-5.0); eGFR CKD-EPI 71.8 (>60)
[2023-05-28] MEDS: cefTRIAXone 1 gm/50 mL D5W 1 GM/50 ML BAG IV SCH (22:45)
[2023-05-29 03:48] LABS: Hematocrit 30.5 % (38-53); Hemoglobin 10.6 g/dL (13.2-16.3); Mean Corpuscular Hemoglobin 29.4 pg (27-33); Mean Corpuscular Hgb Conc 34.7 g/dL (31-36); Mean Corpuscular Volume 84.8 fL (80-97); Mean Platelet Volume 7.6 fL (7.5-11.2); Platelet Count 204 10^3/uL (150-450); Red Blood Count 3.59 10^6/uL (4.06-5.63); Red Cell Distribution Width 14.1 % (12-17); White Blood Count 7.6 10^3/uL (3.6-10.2)
[2023-05-29 04:05] LABS: Calcium 7.9 mg/dL (8.6-10.3); Creatinine, Serum 0.9 mg/dL (0.67-1.17); Potassium 3.2 mmol/L (3.5-5.0); eGFR CKD-EPI 91.3 (>60)
[2023-05-29] MEDS ORDERED: Potassium Chlor 20 meq TAB.ER PO ONE (08:16)
[2023-05-29] MEDS: Polyethylene Glycol 3350 17 GM PACKET PO SCH (09:31)
[2023-05-29] MEDS: Heparin 5000 UNITS/ML 1 mL VIAL SUBCUT SCH ×2 (09:32→20:13)
[2023-05-29] MEDS: cefTRIAXone 1 gm/50 mL D5W 1 GM/50 ML BAG IV SCH (23:06)
[2023-05-30 06:52] LABS: Calcium 7.9 mg/dL (8.6-10.3); Creatinine, Serum 0.67 mg/dL (0.67-1.17); Magnesium 1.8 mg/dL (1.9-2.7); Potassium 3.3 mmol/L (3.5-5.0); eGFR CKD-EPI 99.8 (>60)
[2023-05-30] MEDS ORDERED: Potassium Chlor 20 meq TAB.ER PO ONE (07:27)
[2023-05-30] MEDS ORDERED: Magnesium Sulfate 2 gm BAG 2 GM/50 ML BAG IVPB ONE (07:29)
[2023-05-30] MEDS: Polyethylene Glycol 3350 17 GM PACKET PO SCH (09:07)
[2023-05-30] MEDS: Heparin 5000 UNITS/ML 1 mL VIAL SUBCUT SCH (09:08)
[2023-05-30 13:32] VITALS: BP 158/90
== END 2023-05-30 18:45 | disposition home or self-care (01) | DRG 871 ==
LOC: ED 09:12 → SUATTDRO 11:38 → EDHOLD 11:38 → MED 15:45
PROVIDERS: ADMIT Internal Medicine; ATTEND Hospitalist